=== PATIENT | male | born 1945 | race Caucasian/White ===

== ENCOUNTER 2018-12-13 23:11 | Emergency (ER) | payer MEDICARE ==
[~2018-12-13] VITALS: Ht 182.9 cm; Wt 113.4 kg
[2018-12-13 23:15] VITALS: BP 145/83
--- NOTE | 2018-12-13 23:15 | NUR ---
ARRIVAL PATIENT PRESENTS WITH COMPLAINTS OF RASH WHICH DEVELOPED 3-4 HOURS AFTER HE MOWED HIS LAWN TODAY. PATIENT REPORTS THAT HE WAS SEEN HERE A WEEK AGO FOR THE SAME TO HIS LEFT LEG. STATES THAT HE WAS GIVEN CLINDAMYCIN AND METHYLPREDNISONE WHICH HE HAS TAKEN WITH MILD IMPROVEMENT. PATIENT IS AMBULATORY WITH STEADY GAIT WITH HIS CANE. BREATHING EVEN, UNLABORED. CONNECTED TO MONITOR. VSRamona. MD ASHKAN NOTIFIED.
--- NOTE | 2018-12-13 23:30 | ER.PDOC ---
General Chief Complaint: Skin Rash/Abscess Stated Complaint: RASH Time seen by MD: 23:20 Source: patient, family Exam Limitations: no limitations History of Present Illness Initial Comments rash for approximately 10 days, patient states was out cutting grass and developed a rash on arms and ankles and feet, nowhere else, no blanca or thorat discomfort of symptoms, he states the rash is itchy and he is scratching it to the point that he is getting scabs on his arms and legs, he was seen in er previously and got a steroid pack and the rash went away but came back after the steroids were done, he has not seen professor of music for this. Timing/Duration: other Severity: moderate Location: RUE, LUE, RLE, LLE Quality: itchy Identified Cause: possibly Exposure: other Prior symptoms/Treatment: Similar symptoms previous Allergies: Coded Allergies: No Known Allergies (Unverified , 12/17/14) Past Medical History Medical History: hypertension Surgical History: other Social History Smoking: non-smoker Alcohol Use: none Drug Use: none Constitutional: denies fever Respiratory: denies cough, denies shortness of breath Cardiovascular: denies chest pain, denies palpitations, denies syncope Gastrointestinal: denies abdominal pain Musculoskeletal: denies back pain Skin: denies rash Psychiatric/Neurological: denies headache Endocrine: denies flushing Hematologic/Lymphatic: denies blood clots Physical Exam General Appearance: alert, no distress Skin: warm/dry, skin rash Location: RUE, LUE, RLE, LLE Character: macular, urticarial Extremities: non-tender EENT: eyes nml inspection, lips/gums nml, pharynx nml Neck: trachea midline, no swelling Respiratory: no resp. distress, breath sounds nml CVS: reg. rate & rhythm, heart sounds nml Abdomen: non-tender Rectal: non-tender NEURO/PSYCH: oriented x 3, CN's nml as tested, motor nml Comments excoriated skin rash on arms and distal legs bilaterally , no rash on back or neck or abd or trunk, area of rash is excoriated with some scabbing occurring, no signs of cellulitis. no petechia or purpura, reducible umbilical hernia that is not tender. Results/Orders Results/Orders Vital Signs Date Time Temp Pulse Resp B/P (MAP) Pulse Ox O2 Delivery O2 Flow Rate FiO2 12/13/18 23:15 97.7 75 18 98 Room Air 12/13/18 23:15 97.7 75 18 12/13/18 23:15 97.7 75 18 145/83 (103) 98 Room Air Departure Time of Disposition: 23:31 Disposition: 01 HOME, SELF-CARE Impression: Primary Impression: Dermatitis Condition: Stable Patient Instructions: Contact Dermatitis Referrals: OUMOU ROA MD (PCP) PRIMARY CARE PROVIDER Additional Instructions: see your doctor and professor of music of your choice call for appointment in am, any area that has scabbed from itching need to have antibiotic ointment and sterile dressing until healed Duration or Time Spent with Pa: 15 STACIE LUTHER MD Dec 13, 2018 23:30
[2018-12-13] MEDS ORDERED: PREDNISONE PO STA (23:32)
[2018-12-13] MEDS ORDERED: PREDNISONE ONE (23:34)
[2018-12-13 23:47] VITALS: BP 116/87
== END 2018-12-13 23:47 | disposition home or self-care (01) ==
LOC: ER 23:11
DX: L30.9 Dermatitis, unspecified (principal); I10 Essential (primary) hypertension
CPT/HCPCS: 99283; J7512

== ENCOUNTER 2019-08-31 11:14 | Emergency (ER) | payer MEDICARE ==
[~2019-08-31] VITALS: Ht 177.8 cm; Wt 90.7 kg
--- NOTE | 2019-08-31 12:00 | NUR ---
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 HALL COORDINATOR APPLIED AND VITAL SIGNS OBTAINED. IV, STARTED A LABS DRAWN AND SENT TO LAB.
[2019-08-31] MEDS ORDERED: NS 1000ML 1,000 ML IV STA ×3 (12:10→14:00)
[2019-08-31 12:15] VITALS: BP 106/43
[2019-08-31 12:18] LABS: BASOPHIL # 0.1 10^3/uL (0.0-0.1); BASOPHIL % 0.6 % (0.0-0.2); EOSINOPHIL # 0.2 10^3/uL (0.0-0.2); EOSINOPHIL % 1.4 % (0.0-5.0); LYMPHOCYTES % 13.1 % (24.0-44.0); MONOCYTES # 1.4 10^3/uL (0.3-0.8); MONOCYTES % 12.8 % (5.0-12.0); NEUTROPHIL # 7.7 10^3/uL (1.8-7.7); NEUTROPHILS % 71.7 % (41.0-85.0); PLATELET COUNT 288 10^3/uL (150-400)
--- NOTE | 2019-08-31 12:26 | PCM.EKG ---
[facility] Test Date: 2019-08-31 Test Time: 12:17:37 Pat Name: MELISSA WATERMAN Department: Room: Gender: M Paving Crew Foreman: : 1945 Requested By: CON DENNIS Order Number: [id number] Reading MD: Con DENNIS Measurements Intervals [place] Rate: 85 P: 69 ND: 190 QRS: 46 QRSD: 94 T: 64 QT: 375 QTc: 446 Interpretive Statements Sinus rhythm No previous ECG available for comparison Electronically Signed On 09-01-2019 4:21:53 CDT by Con DENNIS Please click the below link to view image of tracing.
[2019-08-31 12:28] VITALS: BP 106/43
--- NOTE | 2019-08-31 12:29 | NUR ---
KAI MERCEDES MBA ON THE PHONE WITH DOCTOR QUINN AT THIS TIME.
--- NOTE | 2019-08-31 12:36 | NUR ---
JULIAN DOCTOR JEANNIE DISCUSSING PATIENT WITH DOCTOR JORDAN
[2019-08-31 12:41] LABS: ABG PH 7.432 (7.350-7.450); BE(B) -3.7 mmol/L (-2.0-2.0); HCO3act 19.6 mmol/L (22.0-26.0); pO2 47.8 mmHg (80.0-100.0)
[2019-08-31 12:43] LABS: CALCIUM 8.3 mg/dL (8.4-10.5); CARBON DIOXIDE 24.4 mmol/L (20.0-32)
--- NOTE | 2019-08-31 12:44 | ER.PDOC ---
General Chief Complaint: Dyspnea/Respdistress Stated Complaint: LOW GRADE FEVER,LOW BP, RASH TRAVEL OUT OF US: No Time seen by MD: 12:42 Source: patient Exam Limitations: no limitations History of Present Illness Initial Comments Rash for few days and low blood pressure today. Patient has [place] cancer on chemotherapy. No chest pain or SOB. No travel history and no exposure to a known patient positive for COVID-19. Severity: moderate Associated Symptoms: fever/chills Allergies: Coded Allergies: No Known Allergies (Unverified , 12/17/14) Past Medical History Medical History: other (Lung cancer) Surgical History: other Social History Alcohol Use: none Drug Use: none Review of Systems Constitutional: no symptoms reported Respiratory: no symptoms reported Cardiovascular: no symptoms reported Gastrointestinal: no symptoms reported Musculoskeletal: no symptoms reported Skin: see HPI, rash All Other Systems: Reviewed and Negative Physical Exam General Appearance: No Apparent Distress, WD/WN Neck: Non-Tender, Full Range of Motion, Supple, Normal Inspection Respiratory: chest non-tender, lungs clear, normal breath sounds, no respiratory distress, no accessory muscle use CVS: reg rate & rhythm, no murmur, no gallop, pulses nml, nml capillary refill Gastrointestinal: Normal Bowel Sounds, No Organomegaly, No Pulsatile Mass, Non Tender Back: Normal Inspection, No CVA Tenderness, No Vertebral Tenderness Extremities: Normal Range of Motion Neurologic/Psychiatric: customer service consultant II-XII NML as Tested Skin: Normal Color, Rash (chest) Results/Orders Results/Orders Orders - CON DENNIS MD Arterial Blood Gas (08/31/19 12:10) Cbc With Auto Diff (08/31/19 12:10) Comprehensive Metabolic Panel (08/31/19 12:10) Creatine Kinase (08/31/19 12:10) Creatine Kinase Mb (08/31/19 12:10) Probnp B-Type Solar Installation Technician (08/31/19 12:10) Troponin I (08/31/19 12:10) PT (08/31/19 12:10) Partial Thromboplastin Time. (08/31/19 12:10) Blood Culture (08/31/19 12:10) Ekg-Routine (08/31/19 12:10) Lactic Acid(Ml) (08/31/19 12:10) 0.9 % Sodium Chloride (Ns 1000ml) (08/31/19 12:10) Xr Chest 1v (08/31/19 12:10) D-Dimer (08/31/19 12:27) Influenza A&B (08/31/19 12:31) Strep Screen (08/31/19 12:31) 0.9 % Sodium Chloride (Ns 1000ml) (08/31/19 12:53) Aspirin (Aspirin) (08/31/19 13:00) Ceftriaxone Sodium (Rocephin) (08/31/19 13:00) 0.9 % Sodium Chloride (Ns 250ml) (08/31/19 13:00) Enoxaparin Sodium (Lovenox) (08/31/19 13:00) Vital Signs Date Time Temp Pulse Resp B/P (MAP) Pulse Ox O2 Delivery O2 Flow Rate FiO2 08/31/19 12:28 98.0 85 22 106/43 (64) 82 Room Air 08/31/19 12:15 98.0 85 22 08/31/19 12:15 98.0 85 22 82 Administered Medications Medications (Trade) Dose Ordered Sig/Qi Route PRN Reason Start Time Stop Time Status Last Admin Dose Admin Sodium Chloride 1,000 ml @ 1,200 mls/hr Q50M STAT IV 08/31/19 12:10 08/31/19 12:59 DC 08/31/19 12:15 1,200 MLS/HR Laboratory Tests Test 08/31/19 12:00 08/31/19 12:32 White Blood Count 10.7 10^3/uL (4.5-11.0) Red Blood Count 4.03 10^6/uL (4.50-5.90) L Hemoglobin 12.1 g/dL (13.9-16.3) L Hematocrit 36.7 % (37.0-53.0) L Mean Corpuscular Volume 91.1 fL (78-100) Mean Corpuscular Hemoglobin 30.0 pg (26-34) Mean Corpuscular Hemoglobin Concent 33.0 g/dL (33-36.5) Red Cell Distribution Width 15.0 % (11.5-14.5) H Platelet Count 288 10^3/uL (150-400) Mean Platelet Volume 8.7 fL (7.8-11.0) Neutrophils (%) (Auto) 71.7 % (41.0-85.0) Lymphocytes (%) (Auto) 13.1 % (24.0-44.0) L Monocytes (%) (Auto) 12.8 % (5.0-12.0) H Neutrophils # (Auto) 7.7 10^3/uL (1.8-7.7) Lymphocytes # (Auto) 1.40 10^3/uL1 (1.0-4.8) Monocytes # (Auto) 1.4 10^3/uL (0.3-0.8) H Absolute Immature Granulocyte (auto 0.04 10^3 u/L (0-2) Absolute Eosinophils (auto) 0.2 10^3/uL (0.0-0.2) Immature Granulocytes % 0.40 % (0.00-0.50) Eosinophils % 1.4 % (0.0-5.0) Basophils % 0.6 % (0.0-0.2) H Basophils # 0.1 10^3/uL (0.0-0.1) Prothrombin Time 14.3 SEC (9.3-11.3) H Prothrombin Time INR (Non-Therap) 1.4 Activated Partial Thromboplast Time 26.7 SEC (24.67-30.72) D-Dimer 2.37 mg/L (0.19-0.49) *H Sodium Level 131 mmol/L (132-145) #L Potassium Level 3.8 mmol/L (3.6-5.2) Chloride Level 98.0 mmol/L (96-109) Carbon Dioxide Level 24.4 mmol/L (20.0-32) Anion Gap 12.4 Blood Urea Nitrogen 31 mg/dL (7-18) H Creatinine 1.71 mg/dL (0.59-1.40) H Estimated GFR () 47.7 (>/=60) Est GFR (CKD-EPI)(Non-Afr Solomon Islander) 39.4 (>/=60) BUN/Creatinine Ratio 18.0 Glucose Level 132 mg/dL (70-110) H Lactic Acid Level 1.8 mmol/L (0.5-1.9) Calcium Level 8.3 mg/dL (8.4-10.5) L Total Bilirubin 0.4 mg/dL (0.2-1.0) Aspartate Amino Transferase (AST) 25 U/L (0-35) Alanine Aminotransferase (ALT) 17 U/L (12-78) Alkaline Phosphatase 91 U/L (50-136) Total Creatine Kinase 91 U/L (39-308) Creatine Kinase MB 3.3 ng/mL (0.5-3.6) Troponin I 1.45 ng/mL (0.00-0.05) *H Pro-B-Type Natriuretic Peptide 4039 pg/mL (0-125) H Total Protein 7.9 g/dL (6.4-8.2) Albumin 2.7 g/dL (3.4-5.0) L Globulin 5.2 Influenza Type A Antigen NEGATIVE (NEG) Influenza B Immunofluorescence NEGATIVE (NEG) Group A Streptococcus Screen POSITIVE (NEGATIVE) Blood pH 7.432 (7.350-7.450) Blood Gas PCO2 30.0 mmHg (35.0-45.0) L Blood Gas PO2 47.8 mmHg (80.0-100.0) L Blood Gas HCO3 19.6 mmol/L (22.0-26.0) L Blood Gas Base Excess -3.7 mmol/L (-2.0-2.0) L Arterial Blood Oxygen Saturation 81.2 % (94.0-97.00) L Deoxyhemoglobin 18.7 % (0.0-5.0) H Carboxyhemoglobin 0.1 % (0.0-3.9) Methemoglobin 0.2 % (0.00-5.0) Total Hemoglobin 12.4 % (12.0-17.8) Total Oxygen Concentration 14.1 % (13.5-17.5) Blood Gas Temperature 37 Oxygen Delivery Method ROOM AIR FiO2 21 % (20-101) Total Carbon Dioxide 20.5 mmol/L (23-27) L Progress Progress CXR: Bilateral airspace opacities in the periphery. No consolidation or pleural effusion. Spoke with Dr. Teran the Oncologist and patient is transferred to [facility] ED. EKG/XRAY/CT/US EKG Comments: Normal Departure Time of Disposition: 13:17 Disposition: 02 XFER SHT-TRM HOSP Impression: Primary Impression: NSTEMI (non-ST elevated myocardial infarction) Additional Impressions: Respiratory failure with hypoxia Sepsis Pneumonia Shingles Strep pharyngitis Condition: Critical Referrals: MARY LYLE III, DO (PCP) PRIMARY CARE PROVIDER Comments Transfer to [facility] ED for Dr. Zuniga. Duration or Time Spent with Pa: 60 min Critical Care Note Total Time (mins): 60 Problem Qualifiers Additional Impressions: Respiratory failure with hypoxia Chronicity: acute Qualified Codes: J96.01 - Acute respiratory failure with hypoxia Sepsis Sepsis type: sepsis due to unspecified organism Sepsis acute organ dysfunction status: unspecified Qualified Codes: A41.9 - Sepsis, unspecified organism Pneumonia Pneumonia type: due to unspecified organism Laterality: bilateral Lung location: unspecified part of lung Qualified Codes: J18.9 - Pneumonia, unspecified organism Shingles Herpes zoster complications: without complications Qualified Codes: B02.9 - Zoster without complications CON DENNIS MD Aug 31, 2019 12:44
[2019-08-31] MEDS ORDERED: NS 1000ML 1,000 ML ONE ×2 (12:53→13:59)
--- NOTE | 2019-08-31 12:55 | DIREP ---
PROCEDURE:CHEST 1 VIEW, 2 images COMPARISON:[facility], CT, CT CHEST ABDOMEN PELVIS WITH CONTR, 04/26/2019, 07:09 PM. [facility], CR, XRAY CHEST SINGLE VW, 04/26/2019, 05:28 PM. INDICATIONS:Fever FINDINGS: LUNGS/PLEURA:Bilateral airspace opacities in the periphery. No pleural effusion. VASCULATURE:Normal. Unremarkable pulmonary vasculature. CARDIAC:Normal. No cardiac silhouette abnormality or cardiomegaly. MEDIASTINUM:Atherosclerotic aorta with no visible aneurysm. BONES:Moderate degenerative disc disease and spondylosis without visible acute abnormalities. OTHER:Right IJ chest port tip about the SVC. No pneumothorax. EKG leads noted. CONCLUSION:Bilateral airspace opacities in the periphery. No consolidation or pleural effusion. Dictated by: Naun Jean M.D. on 08/31/2019 at 12:53 PM
[2019-08-31] MEDS ORDERED: ASPIRIN ONE (13:00)
[2019-08-31] MEDS ORDERED: ROCEPHIN ONE (13:00)
[2019-08-31] MEDS ORDERED: NS 250ML 250 ML IV ONE ×2 (13:00→13:59)
[2019-08-31] MEDS ORDERED: LOVENOX SQ ONE (13:00)
--- NOTE | 2019-08-31 13:10 | NUR ---
NABEEL DR DENNIS ON TRANSFERLINE FOR [facility]
[2019-08-31] MEDS ORDERED: ASPIRIN PO STA (13:12)
[2019-08-31] MEDS ORDERED: LOVENOX SQ STA (13:12)
[2019-08-31] MEDS ORDERED: ZITHROMAX 500 MG in NS 250ML 250 ML IV STA (13:12)
[2019-08-31] MEDS ORDERED: ROCEPHIN 1 GM in NS 100ML 100 ML IV STA (13:12)
--- NOTE | 2019-08-31 13:21 | NUR ---
HEALTH DEPARTMENT DOCTOR JEANNIE ATTEMPTED TO CALL THE HEALTH TO CHECK FOR COVID-19, LEFT MESSAGE
--- NOTE | 2019-08-31 13:22 | NUR ---
HEALTH DEPARTMENT DOCTOR SPOKE WITH HELGA WITH THE HEALTH DEPARTMENT, WILL TEST PATIENT FOR THE COVID-19 TESTING NUMBERS IS [id number].
[2019-08-31 13:39] VITALS: BP 104/56
--- NOTE | 2019-08-31 13:40 | NUR ---
SAMPLE FORMS FILLED OUT AND COVID-19 SWAP AND FORMS SENT TO THE LAB.
--- NOTE | 2019-08-31 13:41 | NUR ---
DISPATCH DISPATCH NOTIFIED OF PATIENT TRANSFER
[2019-08-31] MEDS ORDERED: VANCOMYCIN HCL 1 GM ONE (13:59)
--- NOTE | 2019-08-31 13:59 | NUR ---
WHEELCHAIR WHEELCHAIR SENT HOME WITH NEPHEW.
[2019-08-31] MEDS ORDERED: VANCOMYCIN HCL 1 GM in NS 250ML 250 ML IV STA (14:00)
--- NOTE | 2019-08-31 14:14 | NUR ---
EMS EMS [facility] EMS ANDRA TO THE ED FOR TRANSFER
--- NOTE | 2019-08-31 14:24 | NUR ---
TRANSFER PATIENT LEFT ED VIA GURNEY WITH MASK AND EMS WITH PPE IN ROUTE TO [facility] ED
[2019-08-31 14:25] VITALS: BP 100/52
--- NOTE | 2019-08-31 14:29 | NUR ---
REPORT REPORT GIVEN TO ALEYDA BISHOP AT [facility]
== END 2019-08-31 14:24 | disposition short-term general hospital (02) ==
LOC: ER 11:14
DX: A41.9 Sepsis, unspecified organism (principal); J96.01 Acute respiratory failure with hypoxia; B02.9 Zoster without complications; I21.4 Non-ST elevation (NSTEMI) myocardial infarction; J02.0 Streptococcal pharyngitis; J18.9 Pneumonia, unspecified organism; Z03.818 Encounter for observation for suspected exposure to other biological agents ruled out; Z85.118 Personal history of other malignant neoplasm of bronchus and lung
CPT/HCPCS: 36415; 36600; 71045; 80053; 82550; 82553; 82803; 83605; 83880; 84484; 85025; 85379; 85610; 85730; 87040 ×2; 87635; 87804 ×2; 87880; 93005; 96365; 96368; 96372; 96375; 99291; J0456; J0696 ×2; J1650; J3370 ×2; J7030 ×2; J7050 ×5; 96366; 96367

== ENCOUNTER 2019-10-31 03:07 | Emergency (ER) | payer MEDICARE ==
[~2019-10-31] VITALS: Ht 190.5 cm; Wt 106.6 kg
[2019-10-31 03:17] VITALS: BP 154/65
[2019-10-31 03:26] VITALS: BP 154/65
--- NOTE | 2019-10-31 03:28 | ER.PDOC ---
General Chief Complaint: Requesting Medical Care Stated Complaint: DYSPNEA Time seen by MD: 03:21 Source: patient, family Exam Limitations: no limitations History of Present Illness Initial Comments Patient c/o dyspnea. He has known lung CA and pneumonia and was scheduled to get oxygen for use in the home yesterday but d/t insurance snaffoo it did not arrive. EMS reported 75% oxygen saturation on RA upon arrival which corrected with NRB at 10L. Timing/Duration: 1-3 hours (onset about 1:00 am) Severity: moderate, severe Activities at Onset: sleep Modifying Factors: improves with oxygen (per EMS corrected hypoxia) Associated Symptoms: denies symptoms Allergies: Coded Allergies: No Known Allergies (Unverified , 12/17/14) Home Meds Reported Medications Osimertinib Mesylate (Tagrisso) 80 Mg Tablet, 80 MG PO DAILY24, TAB 10/31/19 Pregabalin (LYRICA) 50 Mg Capsule, 50 MG PO DAILY24, CAPSULE 10/31/19 Potassium Gluconate (POTASSIUM) 99 Mg Tablet, 99 MG PO DAILY24, TAB 10/31/19 Morphine Sulfate (MORPHINE SULFATE) 15 Mg Tablet, 1 TAB PO QID, #120 TAB 10/31/19 Metoprolol Tartrate (LOPRESSER 100MG) 100 Mg Tablet, 1 TAB PO BID, #60 TAB 5 Refills 10/31/19 Meloxicam (MELOXICAM) 7.5 Mg Tablet, 1 TAB PO QD for 30 Days, #30 TAB 0 Refills 10/31/19 Magnesium Oxide (MAGNESIUM) 250 Mg Tablet, 1 TAB PO QD for 30 Days, #30 TAB 0 Refills 10/31/19 Furosemide (FUROSEMIDE) 40 Mg Tablet, 1 TAB PO DAILY, #30 TAB 5 Refills 10/31/19 Calcium Carbonate/Vitamin D3 (Calcium 500-Vit D3 600 Tablet) 500 Mg-600 Tablet, 1 TAB PO QD for 30 Days, #30 TAB 0 Refills 10/31/19 Atorvastatin 20MG (LIPITOR 20MG) 20 Mg Tablet, 1 TAB PO DAILY, #90 TAB 1 Refill 10/31/19 Aspirin (ASPIRIN) 325 Mg Tablet, 1 TAB PO DAILY, #30 TAB 5 Refills 10/31/19 Albuterol Sulfate (PROVENTIL HFA) 6.7 Gm Hfa.aer.ad, 2 PUFF IH QID, #1 INHALER 3 Refills 10/31/19 Past Medical History Medical History: cancer, other Surgical History: other Social History Drug Use: none Review of Systems Constitutional: no symptoms reported EENTM: no symptoms reported Respiratory: shortness of breath Cardiovascular: no symptoms reported Gastrointestinal: no symptoms reported Musculoskeletal: no symptoms reported Skin: no symptoms reported Physical Exam General Appearance: No Apparent Distress Respiratory: normal breath sounds, no respiratory distress, no accessory muscle use, respiratory distress Cardiovascular: Regular Rate, Rhythm Gastrointestinal: Normal Bowel Sounds Extremities: No Pedal Edema, No Calf Tenderness Neurologic/Psychiatric: Alert, Normal Mood/Affect Skin: Normal Color, Warm/Dry Results/Orders Results/Orders Orders - CAYLA REEVES DO Arterial Blood Gas (10/31/19 03:26) Cbc With Auto Diff (10/31/19 03:26) Comprehensive Metabolic Panel (10/31/19 03:26) Creatine Kinase (10/31/19 03:26) Creatine Kinase Mb (10/31/19 03:26) Probnp B-Type Bee Tender (10/31/19 03:26) Troponin I (10/31/19 03:26) PT (10/31/19 03:26) Partial Thromboplastin Time. (10/31/19 03:26) Blood Culture (10/31/19 03:26) Ekg-Routine (10/31/19 03:26) Xr Chest 1v (10/31/19 03:26) Saline Lock (10/31/19 03:26) Urinalysis (10/31/19 03:26) Ct Chest Wo Iv Contrast (10/31/19 04:15) Novel Coronavirus 2019(Sonic) (10/31/19 04:56) Ceftriaxone Sodium (Rocephin) (10/31/19 04:58) Azithromycin (Zithromax) (10/31/19 04:58) Vital Signs Date Time Temp Pulse Resp B/P (MAP) Pulse Ox O2 Delivery O2 Flow Rate FiO2 10/31/19 04:30 98.6 85 18 94 Non-Rebreather 10/31/19 03:26 98.6 103 20 95 Non-Rebreather 10/31/19 03:17 98.6 103 20 10/31/19 03:17 98.6 103 22 92 Laboratory Tests Test 10/31/19 03:20 10/31/19 03:26 White Blood Count 11.3 10^3/uL (4.5-11.0) H Red Blood Count 4.26 10^6/uL (4.50-5.90) L Hemoglobin 12.1 g/dL (13.9-16.3) L Hematocrit 37.2 % (37.0-53.0) Mean Corpuscular Volume 87.3 fL (78-100) Mean Corpuscular Hemoglobin 28.4 pg (26-34) Mean Corpuscular Hemoglobin Concent 32.5 g/dL (33-36.5) L Red Cell Distribution Width 15.8 % (11.5-14.5) H Platelet Count 270 10^3/uL (150-400) Mean Platelet Volume 9.5 fL (7.8-11.0) Neutrophils (%) (Auto) 81.4 % (41.0-85.0) Lymphocytes (%) (Auto) 8.0 % (24.0-44.0) L Monocytes (%) (Auto) 9.2 % (5.0-12.0) Neutrophils # (Auto) 9.2 10^3/uL (1.8-7.7) H Lymphocytes # (Auto) 0.91 10^3/uL1 (1.0-4.8) L Monocytes # (Auto) 1.0 10^3/uL (0.3-0.8) H Absolute Immature Granulocyte (auto 0.03 10^3 u/L (0-2) Absolute Eosinophils (auto) 0.1 10^3/uL (0.0-0.2) Immature Granulocytes % 0.30 % (0.00-0.50) Eosinophils % 0.6 % (0.0-5.0) Basophils % 0.5 % (0.0-0.2) H Basophils # 0.1 10^3/uL (0.0-0.1) Prothrombin Time 12.4 SEC (9.3-11.3) H Prothrombin Time INR (Non-Therap) 1.2 Activated Partial Thromboplast Time 25.2 SEC (24.67-30.72) Sodium Level 137 mmol/L (132-145) Potassium Level 3.9 mmol/L (3.6-5.2) Chloride Level 102.0 mmol/L (96-109) Carbon Dioxide Level 21.5 mmol/L (20.0-32) Anion Gap 17.4 Blood Urea Nitrogen 24 mg/dL (7-18) H Creatinine 1.63 mg/dL (0.59-1.40) H Estimated GFR () 50.3 (>/=60) Est GFR (CKD-EPI)(Non-Afr Latvian) 41.6 (>/=60) BUN/Creatinine Ratio 14.0 Glucose Level 134 mg/dL (70-110) H Calcium Level 8.0 mg/dL (8.4-10.5) L Total Bilirubin 0.3 mg/dL (0.2-1.0) Aspartate Amino Transferase (AST) 27 U/L (0-35) Alanine Aminotransferase (ALT) 14 U/L (12-78) Alkaline Phosphatase 102 U/L (50-136) Total Creatine Kinase 39 U/L (39-308) Creatine Kinase MB 1.0 ng/mL (0.5-3.6) Troponin I 0.03 ng/mL (0.00-0.05) Pro-B-Type Natriuretic Peptide 1359 pg/mL (0-125) H Total Protein 7.2 g/dL (6.4-8.2) Albumin 2.6 g/dL (3.4-5.0) L Globulin 4.6 Blood Gas Sample Site RT RADIAL ARTERY Blood pH 7.480 (7.350-7.450) Blood Gas PCO2 23.5 mmHg (35.0-45.0) L Blood Gas PO2 93.9 mmHg (80.0-100.0) Blood Gas HCO3 17.3 mmol/L (22.0-26.0) L Blood Gas Base Excess -4.4 mmol/L (-2.0-2.0) L Ozzie Test POSITIVE Arterial Blood Oxygen Saturation 97.5 % (94.0-97.00) H Carboxyhemoglobin 1.7 % (0.0-3.9) Methemoglobin 0.6 % (0.00-5.0) Total Hemoglobin 12.6 % (12.0-17.8) Blood Gas Temperature 37.0 Oxygen Delivery Method NON HETAL FiO2 100 % (20-101) Total Carbon Dioxide 18.0 mmol/L (23-27) L Progress Progress WBC 11.3; pH 7.48, pCO2 24, pO2 94, HCO3 17; BUN 24, Creat 1.63; Patient wishes to remain a full code and may therefore require extensive pulmonary care. We will therefore transfer to [facility] where pulmonology is available. EKG/XRAY/CT/US EKG: NSR EKG Comments: Twave inversion V1-V5 XRAY: chest (worsening opacities in bilateral lower lungs) CT Comments: diffuse bilateral ground glass opacities c/w suspect COVID19 Consult/PCP Time Consult/PCP Called: 05:12 Consult/PCP: Dr. Alfaro @ [facility] Reason/Comments: accepted patient in transfer #2 Time Consult/PCP Called: 05:00 Consult/PCP: Dr. Garcia Reason/Comments: if DNR she can care for here; if full code, must transfer to pulmonology Departure Time of Disposition: 05:15 Disposition: 09 ADMITTED INPATIENT Impression: Primary Impression: Hypoxia Additional Impressions: Lung cancer Acute respiratory distress Suspected COVID-19 virus infection Pneumonia Condition: Improved If Transfer, List PT Destinati: [facility] Referrals: MARY LYLE III, DO (PCP) PRIMARY CARE PROVIDER Duration or Time Spent with Pa: 20 min Problem Qualifiers Additional Impressions: Lung cancer Laterality: unspecified laterality Lung location: unspecified part of lung Qualified Codes: C34.90 - Malignant neoplasm of unspecified part of unspecified bronchus or lung Pneumonia Pneumonia type: due to unspecified organism Laterality: bilateral Lung location: unspecified part of lung Qualified Codes: J18.9 - Pneumonia, unspecified organism CAYLA REEVES DO Oct 31, 2019 03:28
--- NOTE | 2019-10-31 03:34 | NUR ---
XRAY CALLED CALLED KIEL FOR XRAY
[2019-10-31 03:43] LABS: BASOPHIL # 0.1 10^3/uL (0.0-0.1); BASOPHIL % 0.5 % (0.0-0.2); EOSINOPHIL # 0.1 10^3/uL (0.0-0.2); EOSINOPHIL % 0.6 % (0.0-5.0); LYMPHOCYTES # 0.91 10^3/uL1 (1.0-4.8); MEAN CORP HGB 28.4 pg (26-34); MONOCYTES % 9.2 % (5.0-12.0); NEUTROPHIL # 9.2 10^3/uL (1.8-7.7); NEUTROPHILS % 81.4 % (41.0-85.0); PLATELET COUNT 270 10^3/uL (150-400); RED CELL DISTRIBUTION WIDTH 15.8 % (11.5-14.5)
--- NOTE | 2019-10-31 03:57 | PCM.EKG ---
[facility] Test Date: 2019-10-31 Test Time: 03:23:40 Pat Name: MELISSA WATERMAN [facility]: [id number] Room: Gender: M Clinical Rehabilitation Liaison: JOSEPH : 1945 Requested By: CAYLA BURCH Order Number: [id number] Reading MD: Patrizia Burch Measurements Intervals [place] Rate: 95 P: 72 MN: 189 QRS: 21 QRSD: 108 T: -29 QT: 394 QTc: 496 Interpretive Statements Sinus rhythm Low voltage, extremity leads Abnormal R-wave progression, late transition Abnrm T, consider ischemia, anterolateral lds Compared to ECG 08/31/2019 12:17:37 Low QRS voltage now present Possible ischemia now present Electronically Signed On 11-03-2019 7:25:31 CDT by Patrizia Burch Please click the below link to view image of tracing.
[2019-10-31 04:04] LABS: ABG PCO2 23.5 mmHg (35.0-45.0); HCO3act 17.3 mmol/L (22.0-26.0); pO2 93.9 mmHg (80.0-100.0)
[2019-10-31 04:05] LABS: CARBON DIOXIDE 21.5 mmol/L (20.0-32)
[2019-10-31 04:05] LABS: BE(B) -4.4 mmol/L (-2.0-2.0)
--- NOTE | 2019-10-31 04:12 | DIREP ---
PROCEDURE:CHEST 1 VIEW COMPARISON:[facility], CR, XRAY CHEST SINGLE VW, 08/31/2019, 12:39 PM. INDICATIONS:dyspnea FINDINGS: LUNGS/PLEURA:There remain diffuse bilateral airspace opacities with increasing confluence in the lower lungs as compared to previous study. VASCULATURE:Normal. Unremarkable pulmonary vasculature. CARDIAC:Normal. No cardiac silhouette abnormality or cardiomegaly. MEDIASTINUM:Right port line in place with tip in the superior vena cava. BONES:Normal. No fracture or visible bony lesion. OTHER:Monitor leads are in place with CONCLUSION:Increasing confluence of opacities in the lower lungs as compared to previous study. Dictated by: Oniel Combs M.D. on 10/31/2019 at 04:08 AM
[2019-10-31 04:30] VITALS: BP 110/62
[2019-10-31] MEDS ORDERED: ATOR20TA PO (04:31)
[2019-10-31] MEDS ORDERED: ASPI325T14 PO (04:31)
[2019-10-31] MEDS ORDERED: ALBU6.7H8 IH (04:31)
[2019-10-31] MEDS ORDERED: FURO40TA4 PO (04:31)
[2019-10-31] MEDS ORDERED: CALC-614 PO (04:31)
[2019-10-31] MEDS ORDERED: OSIM80TA PO (04:35)
[2019-10-31] MEDS ORDERED: MAGN250T9 PO (04:35)
[2019-10-31] MEDS ORDERED: MELO7.5T31 PO (04:35)
[2019-10-31] MEDS ORDERED: MORP15TA PO (04:35)
[2019-10-31] MEDS ORDERED: PREG50CA PO (04:35)
[2019-10-31] MEDS ORDERED: METO100T7 PO (04:35)
[2019-10-31] MEDS ORDERED: POTA99TA15 PO (04:35)
--- NOTE | 2019-10-31 04:39 | NUR ---
BACK FROM CT PATIENT BACK FROM CT, NEPHEW AT BEDSIDE. NO NEEDS VOICED BY PATIENT OR NEPHEW
--- NOTE | 2019-10-31 04:53 | DIREP ---
PROCEDURE:CT CHEST WITHOUT CONTRAST TECHNIQUE:Axial cuts were obtained through the chest, without intravenous contrast material. The images were viewed at lung and soft tissue settings. Sagittal and coronal reconstructions are provided. COMPARISON:[facility], CT, CT CHEST ABDOMEN PELVIS WITH CONTR, 04/26/2019, 07:09 PM. INDICATIONS:opacities bilateral lower lungs, CA vs infiltrate FINDINGS: LUNGS:Diffuse ground-glass opacities in both lungs with confluence in the lower lobe lobes. Air bronchograms are seen in the areas of confluence indicating airspace disease rather than mass lesion. CARDIAC:Mild cardiomegaly. Calcification in the mitral annulus. THORACIC AORTA:Moderately calcified. MEDIASTINUM/JESSI:Right port line in place with tip in the superior vena cava. PLEURA:Normal. CHEST WALL:Normal. LIMITED ABDOMEN:Cysts in the right kidney. BONES:Lytic lesion T9 vertebral body series 4, image 43. Sclerosis and T8, T10 and T11. THYROID:Normal. OTHER:No additional findings. CONCLUSION: 1. Extensive ground-glass opacities in both lungs. Covid pneumonia should be excluded. 2. Mixed lytic and sclerotic lesions in the spine. Malignancy cannot be excluded. Recommend correlation with whole-body bone scan. Dictated by: Oniel Combs M.D. on 10/31/2019 at 04:45 AM
[2019-10-31] MEDS ORDERED: ZITHROMAX PO STA (04:58)
[2019-10-31] MEDS ORDERED: ROCEPHIN 1 GM in NS 100ML 100 ML IV STA (04:58)
[2019-10-31 05:23] VITALS: BP 116/53
[2019-10-31] MEDS ORDERED: ROCEPHIN ONE (05:27)
[2019-10-31] MEDS ORDERED: ZITHROMAX ONE (05:27)
--- NOTE | 2019-10-31 05:28 | NUR ---
REPORT TO [facility] JOHN MUNOZ GAVE REPORT TO DARIO GRAHAM AT [facility]
--- NOTE | 2019-10-31 05:30 | NUR ---
DISPATCH CALLED DISPATCH CALLED FOR TRANSFER TO [facility]
== END 2019-10-31 05:50 | disposition other institution (70) ==
LOC: ER 03:07 → EDBD 03:07 → ER 05:50
DX: J18.9 Pneumonia, unspecified organism (principal); C34.90 Malignant neoplasm of unspecified part of unspecified bronchus or lung; R06.03 Acute respiratory distress; R09.02 Hypoxemia; Z20.828 Contact with and (suspected) exposure to other viral communicable diseases; Z79.1 Long term (current) use of non-steroidal anti-inflammatories (NSAID); Z79.82 Long term (current) use of aspirin; Z79.899 Other long term (current) drug therapy
CPT/HCPCS: 36415; 71045; 71250; 80053; 82550; 82553; 82803; 83880; 84484; 85025; 85610; 85730; 87040 ×2; 87635; 93005; 96365; 99285; J0696 ×2; J7050; Q0144